=== PATIENT | female | born 1995 | race African-American/Black ===

== ENCOUNTER 2020-09-01 20:11 | Emergency (ER) | payer OTHER ==
[~2020-09-01] VITALS: Ht 172.7 cm; Wt 73.0 kg
[2020-09-01] MEDS ORDERED: ACETAMINOPHEN 325MG TABLET PO STA (20:48)
[2020-09-01 21:25] LABS: EOSINOPHILS % 5.6 % (0.0-5.0); HEMATOCRIT. 38.9 % (36.0-48.0); HEMOGLOBIN. 13.1 g/dL (12.0-16.0); LYMPHOCYTES % 48.5 % (20.0-50.0); MEAN CORPUSCULAR HEMOGLOBIN 28.7 pg (28.0-32.0); MEAN CORPUSCULAR VOLUME 85.5 fL (81.0-99.0); MONOCYTES % 6.9 % (2.0-8.0); PLATELET 165 x1000/uL (130-400); RED BLOOD CELL COUNT 4.55 mill/uL (4.2-5.4); RED CELL DISTRIBUTION WIDTH 13.1 % (11.6-14.6)
[2020-09-01 21:26] LABS: CHLORIDE 107 mEq/L (98-107)
[2020-09-01 22:40] VITALS: BP 135/76
== END 2020-09-01 22:42 | disposition home or self-care (01) ==
LOC: ER 20:11
DX: R07.89 Other chest pain (principal); Z98.82 Breast implant status
CPT/HCPCS: 36415; 71045; 80053; 81025; 84484; 85025; 85379; 93005; 99285